=== PATIENT | female | born 1995 | race Caucasian/White ===

== ENCOUNTER 2018-05-15 19:17 | Emergency (ER) | payer BC ==
--- NOTE | 2018-05-15 20:43 | UC ---
Syncope/New Syncope HPI - HPI Summary HPI Summary: 23-year-old female presents for report of near syncopal episode that occurred around 5 PM this evening. She states that she was walking from her car when she suddenly became dizzy, felt like things became black, and she fell to the ground. States she does not think she lost any consciousness however the episode was not witnessed. She thinks symptoms lasted only a few seconds to minutes. Denies hitting her head or other injury. She denies sensation of heart racing or skipping beats however states she was feeling anxious at the time. She states that she's been having sinus symptoms for the past 2 weeks with a frontal headache, nasal congestion, and sinus pressure. Denies fever, chills, facial droop, slurred speech, weakness, numbness, or tingling in her extremities, chest pain, shortness of breath, abdominal pain, nausea, vomiting, diarrhea, blood in stools, melena, dysuria, frequency, or urgency. - History Of Current Complaint Chief Complaint: UCGeneralIllness Stated Complaint: SINUSES,DIZZY,FAINTED Time Seen by Provider: 05/15/18 20:16 Hx Obtained From: Patient Hx Last Menstrual Period: 05/10/18 Onset/Duration: Sudden Onset Activity At Onset: Other - Walking Timing: Intermittent Episode Lasting - seconds to minutes Frequency: Episodes x___ - 1 Context: Unwitnessed Associated Head Trauma: No Pain Intensity: 6 Aggravating Factor(s): Nothing Alleviating Factor(s): Nothing Associated Signs And Symptoms: Positive: Dizzy, Headache, Lightheadedness. Negative: Chest Pain, Diarrhea, Diaphoresis, Head Trauma (Remote), Head Trauma ( Recent), Numbness, Pain, Palpitations, Seizure, Shortness Of Breath, Vomiting, Weakness - Allergies/Home Medications Allergies/Adverse Reactions: Allergies Allergy/AdvReac Type Severity Reaction Status Date / Time amoxicillin [From Augmentin] Allergy Unknown Unknown Verified 05/15/18 19:24 Reaction Details clavulanic acid Allergy Unknown Unknown Verified 05/15/18 19:24 [From Augmentin] Reaction Details PMH/Surg Hx/FS Hx/Imm Hx Previously Healthy: Yes - Denies significant PMH - Surgical History Surgical History: Yes Surgery Procedure, Year, and Place: TONSILLECTOMY - Family History Family History: noncontributory - Social History Occupation: Student Lives: With Family Alcohol Use: Weekly Substance Use Type: None Smoking Status (MU): Never Smoked Tobacco Review of Systems Constitutional: Negative Skin: Negative Eyes: Negative ENT: Nasal Discharge, Sinus Congestion, Sinus Pain/Tenderness Respiratory: Negative Cardiovascular: Negative Gastrointestinal: Negative Genitourinary: Negative Motor: Negative Neurovascular: Negative Neurological: Headache Is Patient Immunocompromised?: No All Other Systems Reviewed And Are Negative: Yes Physical Exam Triage Information Reviewed: Yes Appearance: Well-Appearing, No Pain Distress, Well-Nourished Vital Signs: Initial Vital Signs Temp 98.7 F 05/15/18 19:25 Pulse 87 05/15/18 19:25 Resp 20 05/15/18 19:25 BP 122/77 05/15/18 19:25 Pulse Ox 100 05/15/18 19:25 Vital Signs Reviewed: Yes Eyes: Positive: Conjunctiva Clear. Negative: Discharge ENT: Positive: Pharynx normal, Nasal congestion, Nasal drainage, TMs normal, Sinus tenderness - Frontal, Uvula midline. Negative: Tonsillar swelling, Tonsillar exudate Neck: Positive: Supple, Nontender, No Lymphadenopathy Respiratory: Positive: Lungs clear, Normal breath sounds, No respiratory distress Cardiovascular: Positive: RRR, No Murmur, Pulses Normal, Brisk Capillary Refill Abdomen Description: Positive: Nontender, No Organomegaly, Soft. Negative: CVA Tenderness (R), CVA Tenderness (L), Distended, Guarding Bowel Sounds: Positive: Present Neurological: Positive: Alert, Muscle Tone Normal, Other: - Awake alert and oriented 4. PERRLA. Cranial nerves II through XII are grossly intact. Moves all extremities equal and strong. Sensation intact. Coordination intact. Diagnostics - Laboratory Diagnostic Studies Completed/Ordered: Urine negative - EKG EKG Comments: T-wave inversion in V1 and V2. Likely normal variant however no previous EKG for comparison. Cardiac Rate: NL - Rate 67 Cardiac Rhythm: Sinus: Normal Ectopy: None ST Segment: Normal Syncope Course/Dx - Course Course Of Treatment: 23 year old female with single episode of near syncope vs vertigo earlier today. She is also reporting 2 week history of URI/sinusitis symptoms. She was assymptomatic in the clinic. Exam was unremarkable except for some nasal congestion and frontal sinus tenderness. Neuro intact. 12 lead EKG NSR. Urine negative. Will treat her for sinusitis as this could have possibly provoked her earlier episode although cannot rule out neurological or cardiogenic cause. She is to follow up with her PCP within 1 week. Warning symtoms reviewed. Patient verbalizes understanding and agrees with POC. - Differential Dx/Diagnosis Provider Diagnoses: acute frontal sinusitis, near syncope Discharge - Sign-Out/Discharge Documenting (check all that apply): Patient Departure All imaging exams completed and their final reports reviewed: No Studies - Discharge Plan Condition: Stable Disposition: HOME Prescriptions: Doxycycline Hyclate 100 mg PO BID #14 tablet Fluticasone NASAL SPRAY 50MCG* [Flonase NASAL SPRAY 50MCG*] 2 spray BOTH NARES DAILY #1 btl Patient Education Materials: Sinusitis (ED), Near Syncope (ED) Referrals: Non Staff,Doctor [Medical Doctor] - Additional Instructions: The EKG that was performed in the clinic today was normal. Your exam was also fairly unremarkable. I do not have an explanation for the episode you had today although it could have been some vertigo related to the sinus symptoms he been having. I will treat you for a sinus infection. Start doxycycline 1 tab twice a day for 7 days. Be sure to take the entire course even if her symptoms improve. Do not take this medication with any dairy products as it could affect the absorption of the antibiotic. Be aware that this medication will make him more sensitive to the sunlight therefore you should minimize your time in the sun. If you must be outdoors you need to take precautions such as a hat, long sleeves, and a sunscreen SPF 30 or higher. Start fluticasone (Flonase) nasal spray 2 sprays each nostril once daily. Use a saline rinse kit such as Netti Pot or NeilMed at least twice a day to help thin secretions and promote drainage. Try using an peah-nde-gsoovid decongestant such as Sudafed for any nasal congestion or sinus pressure. Follow-up with your primary care provider in 7 days for recheck. Seek immediate medical attention in the emergency room should she have another episode of dizziness, lose consciousness, had a sudden severe headache, visual disturbances, facial droop, slurred speech, weakness numbness tingling in your arms or legs especially if on one side of your body, chest pain, feeling as if her heart is racing or skipping beats, shortness of breath, or any new or worsening symptoms. - Billing Disposition and Condition Condition: STABLE Disposition: Home
[2018-05-15 20:58] VITALS: BP 119/77
[2018-05-15] MEDS ORDERED: DOXYcycline CAP(*) 100 MG PO ONE (21:05)
== END 2018-05-15 21:22 | disposition home or self-care (01) ==
LOC: UCCORT 19:17
DX: J01.10 Acute frontal sinusitis, unspecified (principal); R55 Syncope and collapse; Z88.0 Allergy status to penicillin; Z88.8 Allergy status to other drugs, medicaments and biological substances
CPT/HCPCS: 84702; 93005; 99202; A9270-GY; G0463